=== PATIENT | female | born 1955 | race Caucasian/White ===

== ENCOUNTER 2020-10-20 23:03 | Emergency (ER) | payer BC ==
[~2020-10-20] VITALS: Ht 177.8 cm; Wt 74.1 kg
[2020-10-20 23:13] VITALS: TEMP 97.5
[2020-10-21 00:12] LABS: PROTHROMBIN TIME 11.4 SECONDS (9.7-12.8)
[2020-10-21 00:15] LABS: BASO # 0.1 (0.0-0.2); BASO % 0.6 % (0.0-2.0); EOS # 0.2 (0.0-0.7); EOS % 1.9 % (0-4.0); GRAN # 6.2 (1.4-6.5); GRAN % 72.8 % (42.2-75.2); HEMATOCRIT 37.7 % (37.0-47.0); HEMOGLOBIN 12.7 g/dl (12.5-16.0); LYMPH # 1.4 (1.2-3.4); LYMPH % 16.1 % (20.0-51.0); MEAN CELL VOLUME 91 fl (80.0-100.0); MEAN CORPUSCULAR HEMOGLOBIN 31 pg (27.0-31.0); MEAN CORPUSCULAR HGB CONC 34 g/dl (33.0-37.0); MEAN PLATELET VOLUME 9.6 fl (7.4-10.4); MONO # 0.7 (0.1-0.6); MONO % 8.2 % (1.7-9.3); PLATELET COUNT 341 K/mm3 (130-400); RED BLOOD COUNT 4.15 M/mm3 (4.10-5.30); REDCELL DISTRIBUTION WIDTH-CV 11.9 % (11.5-14.5)
[2020-10-21 00:16] LABS: ALANINE AMINOTRANSFERASE 17 U/L (4-34); ALBUMIN 4.5 gm/dL (3.5-5.0); ALKALINE PHOSPHATASE 79 U/L (50-136); ANION GAP 5 mmol/L (7-16); AST,SGOT 47 U/L (15-37); BILIRUBIN,TOTAL 0.3 mg/dL (0.0-1.0); BLOOD UREA NITROGEN 9 mg/dL (7-17); CALCIUM 9.4 mg/dL (8.4-10.2); CARBON DIOXIDE 26 mmol/L (22-30); CHLORIDE 99 mmol/L (98-107); CREATININE, serum 0.65 (0.52-1.25); GLUCOSE 123 mg/dL (74-106); SODIUM 130 mmol/L (137-145); TOTAL PROTEIN 7.9 gm/dL (6.4-8.2)
[2020-10-21 00:29] LABS: TROPONIN-I < 0.012 ng/mL (0.000-0.035)
[2020-10-21 02:01] VITALS: BP 154/80; PULSE 78
== END 2020-10-21 02:01 | disposition home or self-care (01) ==
LOC: COL.ER 23:03
PROVIDERS: Emergency Medicine
DX: I10 Essential (primary) hypertension (principal)
CPT/HCPCS: J0360; J7030

== ENCOUNTER → 2021-08-14 | Outpatient (CLI) | payer BC | LOC: MC.RAD 10:36 | DX: Z12.31 Encounter for screening mammogram for malignant neoplasm of breast (principal) ==

== ENCOUNTER → 2023-10-31 | Outpatient (CLI) | payer MEDICARE, BC | LOC: MC.RAD 10:06 | DX: Z12.31 Encounter for screening mammogram for malignant neoplasm of breast (principal) ==